=== PATIENT | male | born 2000 | race Caucasian/White ===

== ENCOUNTER 2024-05-03 23:50 | Emergency (ER) | payer SELFPAY ==
[2024-05-04] MEDS ORDERED: Proparacaine 0.5% Ophth Soln 15 ML BOTTLE *BULK OP ONE (00:30)
[2024-05-04] MEDS ORDERED: Erythromycin 0.5% Ophth Oint 3.5 GM TUBE OP ONE (00:30)
[2024-05-04 00:55] VITALS: BP 150/98
== END 2024-05-04 00:55 | disposition home or self-care (01) ==
LOC: ED 23:50
DX: S05.02XA Injury of conjunctiva and corneal abrasion without foreign body, left eye, initial encounter (principal); F17.200 Nicotine dependence, unspecified, uncomplicated; W39.XXXA Discharge of firework, initial encounter